=== PATIENT | female | born 1990 | race Caucasian/White ===

== ENCOUNTER → 2021-10-19 08:45 | Outpatient (CLI) | payer BC, SELFPAY ==
--- NOTE | ~2021-10-19 | MMUS_ITS ---
EXAMINATION: MM diagnostic [facility] LT [facility], US breast LT complete HISTORY: Rest the color nipple discharge 3 weeks ago TECHNIQUE: Additional 3-D tomosynthesis images of the left breast were performed and synthetic 2-D im ages were generated. CAD analysis was submitted and interpreted. High resolution complete left breast ultrasound was performed. COMPARISON: None BREAST PARENCHYMAL COMPOSITION: Breast composed of scattered areas of fibroglandular density. FINDINGS: MAMMOGRAPHIC FINDINGS: There are no suspicious masses, calcifications or architectural distortion in the left breast to sugg est malignancy. ULTRASOUND: Complete bilateral US of all 4 quadrants of the breasts and retroareolar region was reviewed. Normal heterogeneous echotexture without focal solid or cystic mass. IMPRESSION: 1. No evidence for malignancy in the left breast. 2. If there is recurrent bloody nipple discharge, further evaluation with MRI is recommended. Otherwi se, routine follow-up clinical management recommended. BI-RADS Category 1: Negative Reviewed, dictated and finalized at location A. IGERATION PERSON IMPRESSION: 1. No evidence for malignancy in the left breast. 2. If there is recurrent bloody nipple discharge, further evaluation with MRI i s recommended. Otherwise, routine follow-up clinical management recommended. BI-RADS Category 1: Negative
== END ==
PROVIDERS: Visit Provider Obstetrics & Gynecology
DX: N64.4 Mastodynia (principal)
CPT/HCPCS: 76641; 77061; 77065; G0279